=== PATIENT | male | born 1960 | race Hispanic/Latino ===

== ENCOUNTER → 2020-10-31 | Outpatient (CLI) | payer OTHER, SELFPAY ==
[2020-10-31 22:38] LABS: Absolute Lymphocyte Count 1.46 X10^3/uL (0.83-4.51); Absolute Neutrophil Count 2.7 X10^3/uL (2.0-7.7); Basophil# 0.02 X10^3/uL; Basophil% 0.4 % (0-1); Eosinophil# 0.14 X10^3/uL; Eosinophils% 2.9 % (0-5); Hematocrit 39.4 % (40-54); Hemoglobin 13.6 g/dL (13.0-16.5); Lymphocyte # 1.46 X10^3/ul (0.83-4.51); Lymphocyte % 30.4 % (19-41); Mean Corp Hgb Conc 34.5 g/dL (32-36); Mean Corpuscular Hgb 31.8 pg (27.0-32.0); Mean Corpuscular Volume 92.1 fL (80-94); Mean Platelet Vol. 10.2 fl (6.2-12.0); Monocyte# 0.46 X10^3/uL; Monocyte% 9.6 % (0-10); NRBC Flagged by Analyzer 0 % (0-5); Neutrophil % 56.3 % (47-70); Platelet Count 319 K/mm3 (150-450); RBC Distribution Width SD 40.6 fl (35.1-43.9); Red Blood Count 4.28 M/mm3 (4.6-6.2); White Blood Count 4.8 K/mm3 (4.4-11.0)
[2020-10-31 23:00] LABS: ALB/GLOB Ratio 0.6 RATIO (0.9-2.4); AST(SGOT) 32 U/L (15-37); Alanine Aminotransfer ALT/SGPT 45 U/L (16-61); Albumin, Serum 2.5 g/dL (3.2-5.0); Alkaline Phosphatase 95 U/L (45-117); Anion Gap 5 (5-15); BUN 9 mg/dL (7-18); BUN/Creat Ratio 10.7 RATIO (10-20); Calcium,Total 8.9 mg/dL (8.5-10.1); Chloride 107 mmol/L (98-107); Cholesterol 127 mg/dL (200); Creatinine, Serum 0.84 mg/dL (0.70-1.30); EST Glomerular Filtration Rate 99 mL/min (>60); Est Glom Filt Rate - Afr Amer 120 mL/min (>60); Globulin 4.5 g/dL (2.2-4.2); Glucose 162 mg/dL (74-106); High Density Lipoprotein 37 mg/dL; Potassium 3.8 mmol/L (3.5-5.1); Sodium Level 140 mmol/L (136-145); Triglycerides 155 mg/dL; Very Low Density Lipoprotein 31 mg/dL (5-40)
== END | disposition home or self-care (01) ==
LOC: LABSPEC 22:15
PROVIDERS: Referring Provider Nurse Practitioner; Visit Provider Nurse Practitioner
DX: Z00.00 Encounter for general adult medical examination without abnormal findings (principal)
CPT/HCPCS: 80053; 80061; 85025

== ENCOUNTER → 2020-11-07 | Outpatient (CLI) | payer OTHER, SELFPAY ==
[2020-11-07 23:30] LABS: Rheumatoid Factor < 10.0 IU/mL (<15); Thyroid Stim Hormone (TSH) 1.69 uIU/mL (0.358-3.74); Uric Acid 5.7 mg/dL (3.5-7.2)
[2020-11-10 16:55] LABS: ANTINUCLEAR ANTIBODIES DIRECT Negative (Negative)
== END | disposition home or self-care (01) ==
PROVIDERS: PCP Nurse Practitioner; Referring Provider Nurse Practitioner; Visit Provider Nurse Practitioner
DX: M10.9 Gout, unspecified (principal); M47.812 Spondylosis without myelopathy or radiculopathy, cervical region
CPT/HCPCS: 84443; 84550; 86038; 86225; 86235; 86431

== ENCOUNTER → 2021-10-24 | Outpatient (CLI) | payer OTHER, SELFPAY ==
[2021-10-24 01:42] LABS: Absolute Lymphocyte Count 2.15 X10^3/uL (0.83-4.51); Absolute Neutrophil Count 2.4 X10^3/uL (2.0-7.7); Basophil# 0.07 X10^3/uL; Basophil% 1.3 % (0-1); Eosinophil# 0.37 X10^3/uL; Eosinophils% 6.8 % (0-5); Hematocrit 43.4 % (40-54); Hemoglobin 15.4 g/dL (13.0-16.5); Lymphocyte # 2.15 X10^3/ul (0.83-4.51); Lymphocyte % 39.7 % (19-41); Mean Corp Hgb Conc 35.5 g/dL (32-36); Mean Corpuscular Hgb 33.6 pg (27.0-32.0); Mean Corpuscular Volume 94.8 fL (80-94); Mean Platelet Vol. 10.5 fl (6.2-12.0); Monocyte% 7.4 % (0-10); NRBC Flagged by Analyzer 0 % (0-5); Neutrophil # 2.41 X10^3/uL (2.7-7.7); Neutrophil % 44.6 % (47-70); Platelet Count 276 K/mm3 (150-450); RBC Distribution Width CV 12.2 % (11.6-14.6); RBC Distribution Width SD 42.8 fl (35.1-43.9); Red Blood Count 4.58 M/mm3 (4.6-6.2); White Blood Count 5.4 K/mm3 (4.4-11.0)
[2021-10-24 02:01] LABS: ALB/GLOB Ratio 1.1 RATIO (0.9-2.4); AST(SGOT) 47 U/L (15-37); Alanine Aminotransfer ALT/SGPT 76 U/L (16-61); Albumin, Serum 3.9 g/dL (3.2-5.0); Alkaline Phosphatase 108 U/L (45-117); Anion Gap 6 (5-15); BUN 17 mg/dL (7-18); Calcium,Total 9.7 mg/dL (8.5-10.1); Chloride 106 mmol/L (98-107); Cholesterol 196 mg/dL (200); Creatinine, Serum 0.95 mg/dL (0.70-1.30); EST Glomerular Filtration Rate 87 mL/min (>60); Est Glom Filt Rate - Afr Amer 105 mL/min (>60); Globulin 3.7 g/dL (2.2-4.2); Glucose 175 mg/dL (74-106); High Density Lipoprotein 56 mg/dL; PSA,Total - Annual Screen 0.51 ng/mL (0.00-4.00); Potassium 4.2 mmol/L (3.5-5.1); Protein, Total 7.6 g/dL (6.4-8.2); Sodium Level 139 mmol/L (136-145); Triglycerides 158 mg/dL; Very Low Density Lipoprotein 32 mg/dL (5-40)
== END | disposition home or self-care (01) ==
PROVIDERS: PCP Nurse Practitioner; Visit Provider Nurse Practitioner
DX: Z00.00 Encounter for general adult medical examination without abnormal findings (principal)
CPT/HCPCS: 80053; 80061; 84153; 85025; G0103

== ENCOUNTER → 2022-10-22 | Outpatient (CLI) | payer OTHER, SELFPAY ==
[2022-10-22 22:44] LABS: Absolute Lymphocyte Count 2.16 X10^3/uL (0.83-4.51); Absolute Neutrophil Count 3.1 X10^3/uL (2.0-7.7); Basophil# 0.08 X10^3/uL; Basophil% 1.3 % (0-1); Eosinophil# 0.25 X10^3/uL; Eosinophils% 4.1 % (0-5); Hematocrit 46.1 % (40-54); Hemoglobin 15.2 g/dL (13.0-16.5); Lymphocyte # 2.16 X10^3/ul (0.83-4.51); Lymphocyte % 35.5 % (19-41); Mean Corpuscular Hgb 31.7 pg (27.0-32.0); Mean Corpuscular Volume 96.2 fL (80-94); Mean Platelet Vol. 10.8 fl (6.2-12.0); Monocyte# 0.46 X10^3/uL; Monocyte% 7.6 % (0-10); NRBC Flagged by Analyzer 0 % (0-5); Neutrophil # 3.12 X10^3/uL (2.7-7.7); Neutrophil % 51.3 % (47-70); Platelet Count 265 K/mm3 (150-450); RBC Distribution Width CV 12.3 % (11.6-14.6); RBC Distribution Width SD 43.6 fl (35.1-43.9); Red Blood Count 4.79 M/mm3 (4.6-6.2); White Blood Count 6.1 K/mm3 (4.4-11.0)
[2022-10-22 22:58] LABS: ALB/GLOB Ratio 1.1 RATIO (0.9-2.4); AST(SGOT) 36 U/L (15-37); Alanine Aminotransfer ALT/SGPT 72 U/L (16-61); Alkaline Phosphatase 126 U/L (45-117); Anion Gap 6 (5-15); BUN 20 mg/dL (7-18); BUN/Creat Ratio 20.5 RATIO (10-20); Chloride 104 mmol/L (98-107); Cholesterol 193 mg/dL (200); Creatinine, Serum 0.98 mg/dL (0.70-1.30); EST Glomerular Filtration Rate 83 mL/min (>60); Est Glom Filt Rate - Afr Amer 101 mL/min (>60); Globulin 3.7 g/dL (2.2-4.2); Glucose 143 mg/dL (74-106); High Density Lipoprotein 56 mg/dL; PSA,Total- Diagnostic 0.59 ng/mL (0.0-4.0); Potassium 4.4 mmol/L (3.5-5.1); Protein, Total 7.7 g/dL (6.4-8.2); Sodium Level 136 mmol/L (136-145); Triglycerides 146 mg/dL; Very Low Density Lipoprotein 29 mg/dL (5-40)
[2022-10-22 23:10] LABS: Hemoglobin A1c 8.2 % (3.8-5.6)
== END | disposition home or self-care (01) ==
PROVIDERS: PCP Nurse Practitioner; Visit Provider Nurse Practitioner
DX: Z00.00 Encounter for general adult medical examination without abnormal findings (principal)
CPT/HCPCS: 80053; 80061; 83036; 84153; 85025

== ENCOUNTER → 2023-10-14 | Outpatient (CLI) | payer OTHER, SELFPAY ==
[2023-10-14 21:56] LABS: Absolute Lymphocyte Count 1.98 X10^3/uL (0.83-4.51); Absolute Neutrophil Count 2.8 X10^3/uL (2.0-7.7); Basophil# 0.05 X10^3/uL; Basophil% 0.9 % (0-1); Eosinophil# 0.17 X10^3/uL; Eosinophils% 3.1 % (0-5); Hematocrit 41.6 % (40-54); Hemoglobin 14.4 g/dL (13.0-16.5); Lymphocyte # 1.98 X10^3/ul (0.83-4.51); Lymphocyte % 36.3 % (19-41); Mean Corp Hgb Conc 34.6 g/dL (32-36); Mean Corpuscular Hgb 31.2 pg (27.0-32.0); Mean Corpuscular Volume 90.2 fL (80-94); Mean Platelet Vol. 10.8 fl (6.2-12.0); Monocyte# 0.44 X10^3/uL; Monocyte% 8.1 % (0-10); NRBC Flagged by Analyzer 0 % (0-5); Neutrophil % 51.4 % (47-70); Platelet Count 248 K/mm3 (150-450); RBC Distribution Width CV 12.1 % (11.6-14.6); RBC Distribution Width SD 39.8 fl (35.1-43.9); Red Blood Count 4.61 M/mm3 (4.6-6.2); White Blood Count 5.5 K/mm3 (4.4-11.0)
[2023-10-14 21:59] LABS: ALB/GLOB Ratio 1.2 RATIO (0.9-2.4); AST(SGOT) 27 U/L (15-37); Alanine Aminotransfer ALT/SGPT 45 U/L (16-61); Alkaline Phosphatase 142 U/L (45-117); Anion Gap 6 (5-15); BUN 18 mg/dL (7-18); BUN/Creat Ratio 22.1 RATIO (10-20); Calcium,Total 9.4 mg/dL (8.5-10.1); Chloride 107 mmol/L (98-107); Cholesterol 177 mg/dL (200); Creatinine, Serum 0.81 mg/dL (0.70-1.30); EST Glomerular Filtration Rate 103 mL/min (>60); Est Glom Filt Rate - Afr Amer 124 mL/min (>60); Globulin 3.2 g/dL (2.2-4.2); Glucose 177 mg/dL (74-106); High Density Lipoprotein 46 mg/dL; PSA,Total - Annual Screen 0.52 ng/mL (0.00-4.00); Potassium 3.9 mmol/L (3.5-5.1); Protein, Total 7.2 g/dL (6.4-8.2); Sodium Level 138 mmol/L (136-145); Triglycerides 119 mg/dL; Very Low Density Lipoprotein 24 mg/dL (5-40)
[2023-10-14 22:20] LABS: Hemoglobin A1c 10.7 % (3.8-5.6)
== END | disposition home or self-care (01) ==
LOC: LABSPEC 21:38
PROVIDERS: PCP Nurse Practitioner; Referring Provider Nurse Practitioner; Visit Provider Nurse Practitioner
DX: Z00.00 Encounter for general adult medical examination without abnormal findings (principal); Z12.5 Encounter for screening for malignant neoplasm of prostate
CPT/HCPCS: 80053; 80061; 83036; 84153; 85025; G0103

== ENCOUNTER → 2024-10-02 | Outpatient (CLI) | payer OTHER, SELFPAY ==
[2024-10-02 22:14] LABS: Hematocrit 42.6 % (40-54); Hemoglobin 14.6 g/dL (13.0-16.5); Immature Granulocytes Count 0.010 X10^3/uL (0.0-0.0); Mean Corp Hgb Conc 34.3 g/dL (32-36); Mean Corpuscular Volume 92.8 fL (80-94); Mean Platelet Vol. 11.3 fl (6.2-12.0); NRBC Flagged by Analyzer 0 % (0-5); Platelet Count 225 K/mm3 (150-450); RBC Distribution Width CV 11.8 % (11.6-14.6); RBC Distribution Width SD 39.7 fl (35.1-43.9); Red Blood Count 4.59 M/mm3 (4.6-6.2); White Blood Count 4.9 K/mm3 (4.4-11.0)
--- OUTSIDE RECORDS SUMMARY | 2024-10-02 22:43 | XMS RPT_ITS ---
Author Name Auto Generated Organization OHIP Care Team Providers Care Mounter Automatic Name Role Phone ANDREY DUENAS Attending Unavailable HEMAL JI Attending Unavailable PROBLEMS DATE TYPE CONDITION / CODE ATTENDING STATUS [facility] 09/28/2024 Admitting Diagnosis Unspecified abdominal pain / R10.9(ICD-10) ANDREY DUENAS [facility] 09/28/2024 Admitting Diagnosis Calculus of kidney / N20.0(ICD-10) ANDREY DUENAS [facility] 09/28/2024 Admitting Diagnosis Calculus of ureter / N20.1(ICD-10) ANDREY DUENAS [facility] 09/24/2024 Admitting Diagnosis Right lower quadrant pain / R10.31(ICD-10) HEMAL JI [facility] 09/24/2024 Admitting Diagnosis Type 2 diabetes mellitus with hyperglycemia (HCC) / E11.65(ICD-10) HEMAL JI Active [facility] PROCEDURES No Procedure Records Found RESULTS OFFICE VISIT Observed: 09/28/2024 10:00 AM Status: COMPLETED Source: [facility] [id number] Codey Alexander M Date Provider Department Center 09/28/2024 9537-ANDREY DUENAS [facility] None Family History Family Status - Relation Status Age at Paternal Grandfather Maternal Grandmother Mother Maternal Grandfather Paternal Grandmother Father Alive Level of Service:82500 CT OFFICE/OUTPATIENT ESTABLISHED MOD MDM 30 MIN Reason for Visit and Comments: Follow-up [[id number]] - Patient here for ER follow up 29 Observed: 09/28/2024 10:00 AM Status: COMPLETED Source: [facility] Addended by: ANDREY DUENAS n: 09/28/2024 10:16 AM Modules accepted: Orders PROGRESS NOTE Observed: 09/28/2024 10:00 AM Status: COMPLETED Source: [facility] Andrey Duenas, MSN, [employer], [employer] 09/28/2024 Urology Office Visit [facility] [address], [address] [facility] [address] PATIENT NAME: Codey Alexander DATE OF : 1960 REFERRING PROVIDER: No ref. provider found PCP: No primary care provider on file. TODAY'S DATE: 09/28/2024 Visit type: New patient HPI: Codey is a 64 y.o. male who presents today with chief complaints of: ER - left UVJ Referral/records review: ER from 09/24/2024: RLQ pain. Right flank pain. CT with suspected tiny left UVJ calculus. 13.[address] done. Urology history: New to our practice Kidney stone subjective history: History of kidney stones: denies Flank pain: reports Laterality: right Onset: 09/24/2024 Characteristic: sharp Hematuria: denies Dysuria: denies Nausea: denies Vomiting: denies Fever/chills: denies Review of Systems: All pertinent positives and negatives per HPI as stated above. Medical History[1] Surgical History[2] Allergies[3] Physical Exam: BP 134/82 (BP Location: Right arm, Patient Position: Sitting, BP Cuff Size: Large adult) Pulse 72 Ht 5' 6 (1.676 m) Wt 170 lb (77.1 kg) BMI 27.44 kg/m? Physical Exam Vitals and nursing note reviewed. Abdominal: General: There is no distension. Palpations: Abdomen is soft. Tenderness: There is right CVA tenderness. Neurological: Mental Status: He is alert. Psychiatric: Mood and Affect: Mood normal. Behavior: Behavior normal. Pertinent Labs: CBC: Lab Results Component Value Date WBC 6.0 09/24/2024 HGB 15.1 09/24/2024 HCT 41.8 09/24/2024 MCV 89.7 09/24/2024 PLT 220 09/24/2024 CMP: Lab Results Component Value Date NA 134 (L) 09/24/2024 K 4.2 09/24/2024 CL 101 09/24/2024 CO2 24 09/24/2024 BUN 18 09/24/2024 CREATININE 0.94 09/24/2024 GLUCOSE 373 (H) 09/24/2024 Hemoglobin A1C: Lab Results Component Value Date HGBA1C 13.7 (H) 09/24/2024 Urinalysis: Lab Results Component Value Date COLORU Colorless 09/24/2024 CLARITYU Clear 09/24/2024 KETONESU Trace (A) 09/24/2024 PROTUR Negative 09/24/2024 UROBILINOGEN Normal 09/24/2024 Imaging and results/record review: Imaging: === 09/24/24 === CT ABDOMEN PELVIS WO IV CONTRAST - Impression - Suspected tiny left UVJ calculus, left perinephric stranding. Coronary atherosclerosis Comment: Please note this report has been produced using speech recognition software and may contain errors related to that system including errors in grammar, punctuation, and spelling as well as words and phrases that may be inappropriate. If there are any questions or concerns please feel free to contact the dictating provider for clarification Report Dictated on Electronically Signed By: Derrick Odom MD Electronically Signed Date/Time: 09/24/2024 11:20 AM EDT Other results/records reviewed: ER note Assessment and Plan: Diagnosis Plan 1. Flank pain Urine culture tamsulosin (Flomax) 0.4 MG 24 hr capsule meloxicam (Mobic) 15 MG tablet 2. Kidney stone tamsulosin (Flomax) 0.4 MG 24 hr capsule meloxicam (Mobic) 15 MG tablet Diagnosis 1: Kidney stones Urine culture BMP/CMP reviewed: eGFR greater than 90 on 09/24/2024. Imaging reviewed: CT showing tiny left UVJ calculus. We discussed management of stones including continued observation versus surgical management: observation KUB and US in 2 weeks to assess Stone prevention Intake enough oral fluids (if applicable) to produce around 2.5 liters of urine per day. [place] fluids have high citrate content (lemonade or orange juice). Minimize intake of carbonated drinks that contain phosphoric acid (soda). Decrease sodium in the diet (less than 2300 mg per day). Reduce intake of non-dairy animal protein (meat). 0.8 to 1 grams of protein per kilogram of body weight. Reduce intake of cheese and egg yolks. Increase intake of fruit and vegetables. Moderate your calcium intake (3301-7818 mg per day). Avoid high doses of vitamin C (higher than 500 mg) and vitamin D. Increase fiber diet - increasing fruits and vegetables will help with this. Losing weight if you are overweight. All patient questions answered. Patient voiced understanding. Patient agreed with treatment plan. Discussed adverse effects and side effects of medication treatment. Follow up: 2 weeks - SHARI and KUB prior - kidney stones Andrey Duenas, MSN, [employer] DIRECTOR, [employer]C [facility] Please note that portions of this chart were dictated using [employer] electronic voice recognition software. It is possible that typos and/or omissions and/or substitutions of words and/or phrases may exist, which may alter the intended meaning of the dictating provider. [1] Past Medical History: Diagnosis Date Arthritis Diabetes mellitus (HCC) Seasonal allergies [2] No past surgical history on file. [3] Allergies Allergen Reactions Amoxicillin CT ABDOMEN PELVIS WO IV CONTRAST Observed: 09/24/2024 11:20 AM Status: F Source: [facility] Patient Name: CODEY ALEXANDER : 1960 Exam Date/Time: 09/24/2024 10:25 Procedure: CT ABDOMEN PELVIS WO IV CONTRAST Ordering Provider: JI ANIS Reason For Exam: Flank pain, kidney stone suspected; RLQ abdominal pain (Age >= 14y) Study: CT abdomen pelvis. INDICATION:Flank pain, kidney stone suspected. COMPARISON:None FINDINGS: Dose reduction was employed with automated exposure control. Imaging of the abdomen and pelvis were performed without contrast; evaluation of bowel limited due to lack of oral contrast including detection of inflammation and mucosal lesions. Limited parenchymal, vascular and retroperitoneal evaluation due to lack of intravenous contrast.. Imaging viewed in multiple planes. Limitations: Motion, lack of contrast Additional imaging:None. Lung bases:No convincing acute process. Limited by motion. There is coronary artery calcification. Limited views. Free air: No free air. Bowel: No convincing obstruction, abscess, pneumatosis, inflammatory condition. Limited, lack of oral contrast.. Peritoneal cavity:No convincing acute process. Gallbladder:No definite acute process. Liver spleen pancreas kidneys adrenal glands urinary bladder: A tiny dependent calculus bladder left UVJ present. Mild left perinephric stranding. No convincing acute process of liver pancreas spleen right kidney adrenals. Pelvic structures:No convincing acute process. Vascular:No definite acute process. Limited technique. Retroperitoneum: No convincing significant finding. Musculoskeletal: No convincing acute or occult process. Abdominal wall/rectus muscles/upper legs:No convincing significant process. IMPRESSION: Suspected tiny left UVJ calculus, left perinephric stranding. Coronary atherosclerosis Comment: Please note this report has been produced using speech recognition software and may contain errors related to that system including errors in grammar, punctuation, and spelling as well as words and phrases that may be inappropriate. If there are any questions or concerns please feel free to contact the dictating provider for clarification Report Dictated on Electronically Signed By: Derrick Odom MD Electronically Signed Date/Time: 09/24/2024 11:20 AM EDT Pt ambulatory to room 4 with c/o lower right sided abdominal pain x 2 weeks. Pt reports pain is increased with palpation to area, walking and sitting. Pt reports pain initially began after lifting heavy item but has yet to be relieved with rest. Pt reports that he does have some occasional nausea. Denies any known fevers. COMPLETE URINALYSIS WITH REFLEX TO CULTURE Collected: 09/24/2024 10:53 AM Status: F Source: [facility] TYPE CODE TESTS RESULT OUT OF RANGE REFERENCE UNITS LAB [id number] COLOR OF URINE Colorless Lt. Yellow LAB 0067766 CLARITY OF URINE Clear Clear LAB 9056988 PH OF URINE 5.5 5.0-8.0 pH LAB 9441075 LEUKOCYTE ESTERASE PRESENCE IN URINE BY TEST STRIP Negative Negative Tamra/uL LAB 2816830 NITRITE PRESENCE IN URINE Negative Negative LAB 4863453 PROTEIN (MG/DL) IN URINE BY TEST STRIP Negative Negative mg/dL LAB 1407562 GLUCOSE (MG/DL) IN URINE >1,000 Abnormal Normal (<70) mg/dL LAB 8496525 BILIRUBIN, TOTAL PRESENCE IN URINE Negative Negative mg/dL LAB 548 KETONES (MG/DL) IN URINE Trace Abnormal Negative mg/dL LAB 19 UROBILINOGEN (MG/DL) IN URINE Normal Normal (0-1) mg/dL LAB 549 HEMOGLOBIN PRESENCE IN URINE Negative Negative mg/dL LAB 1199 SPECIFIC GRAVITY OF URINE (NUMERIC) 1.033 High 1.005-1.030 Result Comment: ORDER COMMEN TS: A specimen with <=10 WBC is not consistent with inflammation. This specimen will not reflex to a urine culture. Performed By: #### [id number] #### J2Ee Consultant: STACEY FLORES ([id number]) [facility] [address] [place] [address] BASIC METABOLIC PANEL Collected: 2024 10:03 AM Status: F Source: [facility] TYPE CODE TESTS RESULT OUT OF RANGE REFERENCE UNITS LAB 2775622 SODIUM 134 Low 136-145 mmol/L LAB 8470653 POTASSIUM 4.2 3.5-5.1 mmol/L Result Comment: Plasma potas sium values may be up to 0.5 mmol/L lower than serum values. LAB 9339095 CHLORIDE 101 98-107 mmol/L LAB 6613636 CARBON DIOXIDE 24 23-31 mmol/L LAB 4149483 UREA NITROGEN 18 9-23 mg/dL LAB 0472830 CREATININE 0.94 0.72-1.25 mg/dL LAB 2136630 GLUCOSE 373 High 82-115 mg/dL LAB 3347467 CALCIUM 9.3 8.8-10.0 mg/dL LAB [id number] ANION GAP (JIMENES, CALCULATED) 9 3-13 mmol/L LAB 7619518 GLOMERULAR FILTRATION RATE ML/MIN/1.73 SQ M.PREDICTED >90.0 >60.0 mL/min/1. 73m*2 Result Comment: Calculation based on the Chronic Kidney Disease Epidemiology Collaboration (CKD-EPI) equation refit without adjustment for race Performed By: #### LAB15 ### # J2Ee Consultant: STACEY FLORES ([id number]) [facility] [address] [place] [address] CBC WITH AUTO DIFFERENTIAL Collected: 0 09/24/2024 10:03 AM Status: F Source: [facility] TYPE CODE TESTS RESULT OUT OF RANGE REFERENCE UNITS LAB 0191201 WBC 6.0 3.6-10.7 10*3/uL LAB 6627860 RBC 4.66 4.40-5.90 10*6/uL LAB 9360076 HEMOGLOBIN 15.1 13.0-18.0 g/dL LAB 4699695 HEMATOCRIT 41.8 40.0-52.0 % LAB 2806732 MCV 89.7 77.0-99.0 fL LAB 9295555 MCH 32.4 26.0-34.0 pg LAB 8894467 MCHC 36.1 High 30.5-36.0 % LAB 4918460 RDW 11.8 11.5-15.0 % LAB 1767310 PLATELET COUNT 220 140-440 10*3/uL LAB 6322125 MPV 10.5 9.0-12.7 fL Result Comment: MPV is a annika culated measurement using platelet volume ratio LAB 254 NRBC 0.0 0.0-2.0 /100 WBCs LAB 7850091 NEUTROPHILS RELATIVE 60.1 38.0-82.0 % LAB 5910222 LYMPHOCYTES RELATIVE 30.4 15.0-45.0 % LAB 8339179 MONOCYTES RELATIVE 7.0 5.0-13.0 % LAB 0203867 EOSINOPHILS RELATIVE 1.7 0.0-6.0 % LAB 7761831 BASOPHILS RELATIVE 0.5 0.0-2.0 % LAB 1529308 IMMATURE GRANS % 0.3 0.0-2.0 % LAB 5897210 NEUTROPHILS ABSOLUTE 3.6 1.8-7.5 10*3/uL LAB 6290481 LYMPHOCYTES ABSOLUTE 1.8 1.0-4.3 10*3/uL LAB 0203739 MONOCYTES ABSOLUTE 0.4 0.0-0.9 10*3/uL LAB 4631593 EOSINOPHILS ABSOLUTE 0.1 0.0-0.5 10*3/uL LAB 7350358 BASOPHILS ABSOLUTE 0.0 0.0-0.2 10*3/uL LAB 650294 IMMATURE GRANS ABSOLUTE 0.0 <0.1 10*3/uL Performed By: #### [id number] # ### J2Ee Consultant: STACEY FLORES ([id number]) [facility] ([facility]) [address] [place] [address] HEMOGLOBIN A1C Collected: 09/24/2024 10:03 AM Status : F Source: [facility] TYPE CODE TESTS RESULT OUT OF RANGE REFERENCE UNITS LAB 1026620 HEMOGLOBIN A1C 13.7 High <5.7 %HbA1C Result Comment: Normal less than 5.7% Prediabetes 5.7% to 6.4% Diabetes 6.5% or higher --HgbA1C levels may not be accurate in patients who have renal disease, received recent blood transfusions, are anemic, or who have dyshemoglobinemia. LAB 7386639 ESTIMATED AVERAGE GLUCOSE 346 mg/dL Result Comment: ORDER COMMEN TS: HbA1c values of 5.7-6.4 percent indicate an increased risk for developing diabetes mellitus. HbA1c values greater than or equal to 6.5 percent are diagnostic of diabetes mellitus. For diagnosis of diabetes in individuals without unequivocal hyperglycemia, results should be confirmed by repeat testing. Performed By: #### LAB90 ### # J2Ee Consultant: STACEY FLORES ([id number]) [facility] ([facility]) [address] [place] [address] ED NURSING NOTE Observed: 09/24/2024 9:33 AM Status: COMPLETED Source: [facility] Pt ambulatory to room 4 with c/o lower right sided abdominal pain x 2 weeks. Pt reports pain is increased with palpation to area, walking and sitting. Pt reports pain initially began after lifting heavy item but has yet to be relieved with rest. Pt reports that he does have some occasional nausea. Denies any known fevers. ED PROVIDER NOTE Observed: 09/24/2024 9:33 AM Status: COMPLETED Source: [facility] Emergency Department Encount er Pt Name: Codey Alexander Birthdate 1960 Date of evaluation: 09/24/2024 Provider: Hemal Ji MD CHIEF COMPLAINT Chief Complaint Patient presents with Abdominal Pain HISTORY OF PRESENT ILLNESS HPI Codey Alexander is a 64 y.o. male with no reported PMH (chart indicates DM2 but he denies), not on any medications, presents to ED for eval of 2 weeks of daily RLQ pain radiating to right flank worse with standing and walking, better with laying and rest, assoc with nausea. 1.5 weeks ago he had diarrhea. Since then has had normal BM but less frequent than usual. He is concerned about appendicitis. No prior abd surgeries. No dysuria, frequency or urgency. Subjective fever at a couple points, resolved. Nursing Notes were reviewed. Medical History[1] REVIEW OF SYSTEMS Several elements of the ROS reviewed and otherwise acutely negative except as in the HPI. PHYSICAL EXAM ED Triage Vitals Temp Pulse Resp BP -- -- -- -- SpO2 Temp src Heart Rate Source Patient Position -- -- -- -- BP Location FiO2 (%) -- -- Physical Exam Vitals and nursing note reviewed. Constitutional: General: He is not in acute distress. Appearance: He is well-developed. He is not ill-appearing. HENT: Head: Normocephalic and atraumatic. Eyes: Conjunctiva/sclera: Conjunctivae normal. Cardiovascular: Rate and Rhythm: Normal rate and regular rhythm. Heart sounds: No murmur heard. Pulmonary: Effort: Pulmonary effort is normal. No respiratory distress. Breath sounds: Normal breath sounds. Abdominal: Palpations: Abdomen is soft. Tenderness: There is no abdominal tenderness. There is no right CVA tenderness or left CVA tenderness. Hernia: No hernia is present. Musculoskeletal: General: No swelling. Cervical back: Neck supple. Skin: General: Skin is warm and dry. Neurological: Mental Status: He is alert. Psychiatric: Mood and Affect: Mood normal. Cristobal Coma Scale Best Eye Response: Spontaneous Best Verbal Response: Oriented Best Motor Response: Follows commands Cristobal Coma Scale Score: 15 EMERGENCY DEPARTMENT COURSE and DIFFERENTIAL DIAGNOSIS/MDM: Differential diagnoses include: Appendicitis, ureteral stone, UTI, DKA, abdominus rectus strain ED course: ED Course as of 09/24/24 1308 Mon Sep 24, 2024 1030 CBC shows no leukocytosis. There is hyperglycemia with pseudohyponatremia on BMP, no evidence of DKA. He states that he has tried metformin in the past, but discontinued it due to intolerance. [AK] 1113 UA with trace ketones, glucosuria [AK] 1123 CT abdomen pelvis wo IV contrast Suspected tiny left UVJ calculus, left perinephric stranding. Coronary atherosclerosis [AK] 1144 On reassessment, discussed lab and CT findings. Recommended he start Januvia. Will follow-up with family practice. I will add on an A1c to help their long-term management. I discussed side effects of Januvia. Will also provide phone number for urology. I discussed ED return precautions. [AK] 1302 Hemoglobin A1c returned very elevated. I had a long discussion with the patient of the critical need to be compliant with the medication I am prescribing to bridge him to his outpatient follow-up, and to follow-up because the Januvia will likely be insufficient to control his blood sugars long-term. I also explained to him the risks of chronic uncontrolled hyperglycemia. He expressed understanding of this. Blood sugar is downtrending on repeat evaluation. [AK] ED Course User Index [AK] Hemal Ji MD Diagnoses as of 09/24/24 1308 RLQ abdominal pain Type 2 diabetes mellitus with hyperglycemia, without long-term current use of insulin (HCC) Left ureteral stone ED medications managed: Medications glucose oral gel 15 g (has no administration in time range) dextrose 50 % solution 12.5 g (has no administration in time range) glucagon (human recombinant) injection 1 mg (has no administration in time range) dextrose 5 % infusion (has no administration in time range) ketorolac (Toradol) injection 15 mg (15 mg IntraVENous Given 09/24/24 1004) insulin regular (HumuLIN R,NovoLIN R) injection 5 Units (5 Units IntraVENous Given 09/24/24 1054) sodium chloride 0.9 % bolus 1,000 mL (0 mL IntraVENous Stopped 09/24/24 1154) Chronic conditions and social determinants of health affecting care: diabetes DISPOSITION/PLAN Discharge 09/24/2024 11:26:27 AM PATIENT REFERRED TO: [facility] [address] [address] Schedule an appointment as soon as possible for a visit in 3 days [facility] [address] [facility] [address] Schedule an appointment as soon as possible for a visit in 1 week DISCHARGE MEDICATIONS: New Prescriptions SITAGLIPTIN (JANUVIA) 100 MG TABLET Take 1 tablet (100 mg) by mouth daily. Hemal Ji MD Emergency Medicine [1] Past Medical History: Diagnosis Date Arthritis Diabetes mellitus (HCC) Seasonal allergies Hemal Ji MD 09/24/24 1308 ALLERGIES No Allergies Records Found ENCOUNTERS ADMIT/DISCHARGE ACCOUNT NUMBER ADMITTING ENCOUNTER CLASS LOC ATION SOURCE 09/28/2024/09/28/2024 [id number] Ambulatory [place] [id number] [facility] 09/24/2024/09/24/2024 [id number] Emergency Chang ldin [id number]: [id number]: 04 [facility] PAYERS ENCOUNTER GUARANTOR PAYER SUBSCRIBER SOURCE 09/28/2024 Primary Insurance:MEDICAL MUTUALPolicy Number: [id number] Date:3456-32-45Kkqi Name:Commercial CODEY WALLIS: [id number] [place] [address] [facility] 09/24/2024 Primary Insurance:MEDICAL MUTUALPolicy Number: [id number] Date:8409-31-27Myhe Name:Commercial CODEY WALLIS: [id number] [place] [address] [facility]
[2024-10-02 22:54] LABS: AST(SGOT) 30 U/L (<=37); Alanine Aminotransfer ALT/SGPT 43 U/L (<=46); Albumin, Serum 4.1 g/dL (3.4-4.8); Alkaline Phosphatase 147 U/L (40-129); Anion Gap 12 (5-15); BUN 15 mg/dL (4-19); BUN/Creat Ratio 15.7 RATIO (10-20); Calcium,Total 9.7 mg/dL (7.6-11.0); Carbon Dioxide 24.0 mmol/L (21.0-32.0); Chloride 102 mmol/L (98-108); Cholesterol 195 mg/dL (<=200); Globulin 2.7 g/dL (2.2-4.2); Glucose 253 mg/dL (70-99); Low Density Lipoprotein Calc. 117 mg/dL; Potassium 4.9 mmol/L (3.3-5.1); Triglycerides 173 mg/dL; Very Low Density Lipoprotein 35 mg/dL (5-40); cholesterol:hdl ratio screen 4.51
== END | disposition home or self-care (01) ==
PROVIDERS: PCP Nurse Practitioner; Referring Provider Nurse Practitioner; Visit Provider Nurse Practitioner
DX: Z00.00 Encounter for general adult medical examination without abnormal findings (principal)
CPT/HCPCS: 80053; 80061; 83036; 85025